=== PATIENT | male | born 1990 | race Caucasian/White ===

== ENCOUNTER 2021-03-21 15:54 | Outpatient (CLI) | payer BC ==
--- NOTE | 2021-03-21 16:42 | SLEEP CARE CONSULTATION ---
Information from patient questionnaire entered by Delisa Romero MA. I have reviewed and concur with the information entered by Delisa Romero MA. This document represents the service I personally performed and the decisions made by , Dari Meyer ARNP. History of Present Illness Service Date and Time: 03/21/2021 1554 Reason for Visit: New patient, Previously diagnosed sleep apnea Chief Complaint: reports: Unrefreshed sleep, Snoring, Excessive daytime s leepiness, Fatigue Date of Onset: 10 PLUS YEARS Usual bedtime: 11:00 PM Time it takes to fall asleep: 20 MINUTES Snores at night: Yes Observed to quit breathing while asleep: Yes Sleeps alone due to snoring: No Number of times waking at night: 2 Reasons for waking at night: reports: Pain, Bathroom, Other (TEMPERATURE, PHYSICAL CONTACT) Toss, Turn, or Twitch while sleeping: Yes Recalls having dreams: No Usually gets out of bed at: 0800 Feels refreshed in the morning: No Morning headache: Yes (5-6 days week before meds (adderall), now reduced to 1-2) Sleepy or fatigued during the day: Yes Ever fallen asleep while driving: No Takes day naps: No Prior sleep studies: Yes Year and Where: 05/2011 [facility] Type of Sleep Study: Polysomnography Additional HPI information: I had the pleasure of seeing DENIS MOROCHO today regarding the possibility of him having a sleep disorder. His current complaints are excessive daytime sleepiness, fatigue and unrefreshed sleep. He was tested and diagnosed with sleep apnea, possibly mild, in 2011. He used a CPAP until he had a tonsil lectomy. He has not been on a CPAP since 2013. He states he is being treated for attention deficit since May of 2020. His fatigue seems to be getting worse with muscle weakness and malaise since this last November. - Parasomnia Symptoms Ever been unable to move upon waking from sleep: No Walks in sleep: No Talks in sleep: No Ever acted out dreams in sleep: No Ever felt weak in the knees when startled or emotional: No Bothered by creepy, crawly, restless sensations in legs: No Problems with memory or concentration: Yes (concentration, attention deficit) Subjective Initial Artesian Sleepiness Scale score: 12 (2021) Past Medical History Past Medical History: reports: Claustrophobia, Anxiety, Asthma, GERD, Attention deficit, Other (CHRONIC EBV) Social History The patient's occupation is a SE. Patient is and lives in [place]. Have you smoked in the past 12 months: No Cigarettes per day (20/pack): 30 Years of smokin Quit date: 2009 Smoking Pack Years: 4.5 Alcohol use: Yes Alcohol amount and frequency: 2 X MONTHLY Caffeine use: Yes Caffeine amount and frequency: 1-2 X WEEK Family History Family history of sleep disordered breathing: Yes Family Hx Sleep Apnea: Mother: Snoring, Sleep apnea - Treated, Father: Snoring, Sibling: Snoring, Sleep apnea - Treated, Sleep apnea - Untreated Allergies and Home Medications Known drug allergies: No Drug allergies reviewed: Yes (NKDA) Home medication list reviewed: Yes Allergy and home medication list: D-Amphetamine XR 30 mg/day D-Amphetamine IR 20 mg twice/day Clonidine XR 0.01 mg/day Valacyclovir 500 mg once/day Oriska 3 180 mg Monolaurin 750 mg Olivir 500 mg/ day L-lysine 3000 mg Multivitamin Maitake/Reishi/Shiitake 1 cap twice/day Ashwagandha 500 mg Forastor Melatonin Flonase Review of Systems Cardiovascular: reports: palpitations, chest pain, irregular heart rate or pulse Respiratory: reports: shortness of breath, wheeze, sputum production Urinary: reports: urgency (DURING NIGHT TIME) Neurological: reports: headaches Psychiatric: reports: Attention Deficit Hyperactivity, anxiety, claustrophobia Ear/Nose/Throat: reports: nasal congestion, sinus problems, dry mouth/throat, tonsillectomy, other Endocrine: reports: sluggishness, too hot or cold, excessive thirst, unexplained weakness Musculoskeletal: reports: joint pain, neck pain, back pain, joint swelling, muscle pain or cramping Immunologic: reports: itching, allergies to food or environment Physical Exam Vital signs obtained and entered by: SANDRA CORTEZ Blood Pressure: 123/99 (LEFT) Cuff size: wrist Heart Rate: 99 (GOT VACCINCE BOOSTER YESTERDAY) O2 Saturation: 98 (N95 MASK) Height: 5 ft 11 in Weight: 270 lb (WITH CLOTHES) Body Mass Index: 37.6 BMI Classification: Obese Neck circumference: 18.75 (inches) Mouth and throat: narrow oropharynx Soft palate: long Hard palate: normal Uvula: normal Uvula visualization: 50% Mallampati Class II Tongue: enlarged in size with teeth garber on lateral edges Tonsils: absent bilaterally Neck: normal w/o lymphadenopathy or thyromegaly Heart: regular rate and rhythm Lungs: clear bilaterally Impression and Plan 1. Suspected Obstructive Sleep Apnea-Hypopnea Syndrome, as previously diagnosed and as suggested by a history of irregular snoring, morning headache, unrefreshed sleep, cognitive impairment, and excessive daytime sleepiness. He was diagnosed previously, used a CPAP until his tonsillectomy and did not need the CPAP therapy anymore. He has been developing excessive daytime sleepiness and fatigue for the last 4-5 months and needs to rule out reoccurrence of his sleep apnea. I recommend proceeding to polysomnography to confirm the diagnosis and to assess severity. If the patient has significant sleep disordered breathing, a manual CPAP titration study will also be performed to find the optimal treatment pressure. I informed the patient of what the sleep studies involve and after some discussion, obtained agreement to proceed. The pathophysiology of obstructive sleep apnea-hypopnea syndrome was discussed with the patient and health risks of cardiovascular and cerebrovascular disease if not treated. Risks of drowsy driving discussed in detail and patient advised to avoid long distance driving and to boat puller at the first sign of drowsiness. Patient agreed to plan. * Schedule polysomnography +- manual CPAP titration study and return in 1-2 weeks after the study to discuss result and initiate therapy. * Avoid long distance driving or driving when feeling sleepy. * Avoid alcohol, sedative and muscle relaxant around bedtime. * Attempt to lose weight. * Review instructions provided by trained office staff on how to prepare for the sleep study. * Return for follow-up after sleep study completed. Counseling Topics: Weight loss health impact Visit Type: In Office Time Spent with Patient (minutes): 32 Provider Statement: I spent 100% of the Face to Face Visit with the patient with greater than 50% spent counseling the patient and coordination of care.
[2021-03-21 16:45] VITALS: BP 123/99
== END 2021-03-21 15:55 | disposition home or self-care (01) ==
LOC: SC 15:54
PROVIDERS: ATTEND Nurse Practitioner Family
DX: G47.33 Obstructive sleep apnea (adult) (pediatric) (principal); E66.9 Obesity, unspecified; Z68.37 Body mass index [BMI] 37.0-37.9, adult
CPT/HCPCS: 99203; 99212

== ENCOUNTER 2021-03-27 09:33 | Outpatient (CLI) | payer BC | END 2021-03-27 09:34 | disposition home or self-care (01) | LOC: SC 09:33 | PROVIDERS: ATTEND Nurse Practitioner Family | DX: G47.33 Obstructive sleep apnea (adult) (pediatric) (principal); R09.02 Hypoxemia | CPT/HCPCS: 95806 ==

== ENCOUNTER 2021-04-05 11:35 | Outpatient (CLI) | payer BC ==
[2021-04-05 12:03] VITALS: BP 135/91
--- NOTE | 2021-04-05 12:03 | SLEEP CARE CONSULTATION ---
Information from patient questionnaire entered by Delisa Romero MA. I have reviewed and concur with the information entered by Delisa Romero MA. This document represents the service I personally performed and the decisions made by Betsy araiza Caren J, ARNP. History of Present Illness Service Date and Time: 04/05/2021 1135 Initial Continental Sleepiness Scale score: 12 (2021) Current Continental Sleepiness Scale score: 14 (2021) Additional HPI information: DENIS MOROCHO returns for follow up and results of the recently performed home sleep study. The patient was informed of the following findings: No significant sleep disordered breathing with an average AHI of 4.2 and charline oxygen saturation of 88%. Patient did have a slightly elevated supine AHI of 5.9. I explained the pathophysiology behind obstructive sleep apnea. Patient does not have sleep apnea and was advised how weight gain could increase the risk of developing sleep apnea in the future. I strongly encouraged the patient to lose weight. Patient does not have significant sleep disordered breathing but has elevated AHI in supine position so advised positional therapy. Methods to achieve positional management therapy were discussed; such as, positioning with pillows or commercially obtained positional belts. Patient has moderate snoring. Snoring can be reduced by weight loss. Weight loss is best achieved with diet consult. Patient instructed to contact PCP for referral. Snoring can also be treated with an oral appliance from a dentist. Advised to check insurance coverage. In addition, an ENT evaluation can be do to see if other treatment is indicated. Patient counseled not drink alcohol less than 4 hours before bedtime as it can increase snoring and apnea. Patient was cautioned about risks of drowsy driving until sleepiness symptoms resolve. Sleep Study - Results Type of Sleep Study: Home sleep study Prior sleep studies: Yes Year and Where: 05/2011 [facility] Polysomnography/Home Sleep Study results: Physician Impression: The quality of the study is good. The length of the study is adequate (> 240 minutes). Please also see the tabulated and graphic data. 1. No significant sleep disordered breathing, with an AHI of 4.2/hr and charline SaO2 of 88%. During the study, the patient had 6 apneas (6 obstructive, 0 central, 0 mixed) and 29 hypopneas. The longest episode lasted 91.5 seconds. The few respiratory events occurred almost exclusively during supine sleep (supine AHI was 5.9 and non-supine, 2.42). 2. Hypoxemia (ICD-10 R09.02), minimal,, with the lowest oxygen saturation of 88 % and 1.2 minutes with SaO2 under 90%. Baseline oxygen saturation was normal (Average oxygen sa turation was 94%). Allergies and Home Medications Known drug allergies: No Drug allergies reviewed: Yes Home medication list reviewed: Yes (no changes) Review of Systems Review of systems same as previous: Yes (no changes) Physical Exam Vital signs obtained and entered by: Nicol ROMERO CMA AABRITTANY Blood Pressure: 135/91 (X2, RIGHT , PLUSE 89) Cuff size: wrist Heart Rate: 72 O2 Saturation: 99 (N95 MASK) Height: 5 ft 11 in Weight: 272 lb (WITH CLOTHES) Body Mass Index: 37.9 BMI Classification: Obese Impression and Plan 1. Snoring but no significant sleep disordered breathing. Patient advised that often weight loss will reduce snoring as well as apnea risk. An oral appliance can also be used for snoring. This would require a dental consultation. Patient cautioned not to use other online appliances as can cause bite issues. A list of accredited dentists in area and one local dentist who makes oral appliances given. Patient is advised to check if insurance will cover. An ENT consult can also be helpful to determine if any other treatment is an option. Patient had a elevated supine AHI and I advised him to avoid supine sleep. He voiced understanding. 2. Hypoxemia, minimal,, with the lowest oxygen saturation of 88 % and 1.2 minutes with SaO2 under 90%. His baseline oxygen saturation was normal with an average oxygen saturation of 94%. * Avoid supine sleep due to elevated supine AHI * Attempt to lose weight * Avoid alcohol consumption near bedtime * Return as needed for follow up. Counseling Topics: Weight loss health impact Visit Type: In Office Time Spent with Patient (minutes): 13 Provider Statement: I spent 100% of the Face to Face Visit with the patient with greater than 50% spent counseling the patient and coordination of care.
== END 2021-04-05 11:36 | disposition home or self-care (01) ==
LOC: SC 11:35
PROVIDERS: ATTEND Nurse Practitioner Family
DX: R06.83 Snoring (principal); R09.02 Hypoxemia; E66.9 Obesity, unspecified; Z68.37 Body mass index [BMI] 37.0-37.9, adult
CPT/HCPCS: 99212